=== PATIENT | male | born 1955 | race Caucasian/White ===

== ENCOUNTER → 2017-12-05 | Outpatient (CLI) | payer OTHER ==
[~2017-12-05] MED LIST: GADOBUTROL 10 ML VIAL IVP ONE
== END ==
LOC: FIMAGING 08:01
PROVIDERS: ATTEND Specialist
DX: C61 Malignant neoplasm of prostate (principal)
CPT/HCPCS: A9503; A9585

== ENCOUNTER → 2018-04-17 | Outpatient (CLI) | payer OTHER | LOC: FIMAGING 09:08 | PROVIDERS: ATTEND Specialist | DX: R33.9 Retention of urine, unspecified (principal); C61 Malignant neoplasm of prostate ==

== ENCOUNTER → 2018-04-30 | Outpatient (CLI) | payer OTHER | LOC: FIMAGING 13:00 | PROVIDERS: ATTEND Specialist | DX: R59.0 Localized enlarged lymph nodes (principal); C61 Malignant neoplasm of prostate | CPT/HCPCS: A9585 ==

== ENCOUNTER → 2018-10-01 | Outpatient (CLI) | payer OTHER | LOC: FIMAGING 10:38 | PROVIDERS: ATTEND Specialist | DX: C61 Malignant neoplasm of prostate (principal); R59.1 Generalized enlarged lymph nodes | CPT/HCPCS: A9585 ==